=== PATIENT | female | born 1990 | race Caucasian/White ===

== ENCOUNTER 2018-12-10 14:22 | Emergency (ER) | payer SELFPAY ==
[2018-12-10] MEDS ORDERED: HYDROCODONE/APAP 7.5/325 MG TAB ONE (15:40)
--- NOTE | 2018-12-10 15:50 | RAD REPORT ---
EXAM DESCRIPTION: RAD - Hand Left 3 View - 12/10/2018 3:28 pm CLINICAL HISTORY: Left hand pain and swelling, trauma COMPARISON: None. FINDINGS: No fracture, dislocation or periosteal reaction noted. No acute bone process seen. No fore ign body is identified. There is soft tissue swelling over the dorsum of the hand. IMPRESSION: Soft tissue swelling without fracture or acute bone finding.
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
--- NOTE | 2018-12-10 15:56 | EDPHYS ---
Physician Documentation [facility] Name: Yue Foy Age: 28 yrs Sex: Female : 1990 Arrival Date: 12/10/2018 Time: 14:26 Bed 13 Private MD: ED Physician Joseph Spencer HPI: 12/10 14:51 This 28 yrs old Female presents to ER via Ambulatory with complaints of Hand kb Injury. 14:51 The patient or guardian reports a contusion, decreased range of motion, injury, pain, kb swelling, tenderness. The complaints affect the lateral aspect of left hand. Context: The problem was sustained at home, resulted from a fall. Onset: The symptoms/episode began/occurred just prior to arrival. Modifying factors: The symptoms are alleviated by nothing, the symptoms are aggravated by movement. Associated signs and symptoms: The patient has no apparent associated signs or symptoms. Severity of symptoms: At their worst the symptoms were moderate, in the emergency department the symptoms are unchanged. The patient has not experienced similar symptoms in the past. The patient has not recently seen a physician. 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 - Social history:: Smoking status: Patient uses tobacco products, smokes one-half pack cigarettes per day. - Ebola Screening: : Patient negative for fever greater than or equal to 101.5 degrees Fahrenheit, and additional compatible Ebola Virus Disease symptoms Patient denies exposure to infectious person Patient denies travel to an Ebola-affected area in the 21 days before illness onset No symptoms or risks identified at this time. ROS: 14:50 Constitutional: Negative for fever, chills, and weight loss, Cardiovascular: Negative kb for chest pain, palpitations, and edema, Respiratory: Negative for shortness of breath, cough, wheezing, and pleuritic chest pain, Abdomen/GI: Negative for abdominal pain, nausea, vomiting, diarrhea, and constipation, Skin: Negative for injury, rash, and discoloration, Neuro: Negative for headache, weakness, numbness, tingling, and seizure. 14:50 MS/extremity: Positive for injury or acute deformity, contusion, decreased range of motion, ecchymosis, pain, swelling, tenderness, of the lateral aspect of left hand. Exam: 14:50 Constitutional: This is a well developed, well nourished patient who is awake, alert, kb and in no acute distress. Head/Face: Normocephalic, atraumatic. Chest/axilla: Normal chest wall appearance and motion. Nontender with no deformity. No lesions are appreciated. Cardiovascular: Regular rate and rhythm with a normal S1 and S2. No gallops, murmurs, or rubs. Normal PMI, no JVD. No pulse deficits. Respiratory: Lungs have equal breath sounds bilaterally, clear to auscultation and percussion. No rales, rhonchi or wheezes noted. No increased work of breathing, no retractions or nasal flaring. Abdomen/GI: Soft, non-tender, with normal bowel sounds. No distension or tympany. No guarding or rebound. No evidence of tenderness throughout. Skin: Warm, dry with normal turgor. Normal color with no rashes, no lesions, and no evidence of cellulitis. Neuro: Awake and alert, GCS 15, oriented to person, place, time, and situation. Cranial nerves II-XII grossly intact. Motor strength 5/5 in all extremities. Sensory grossly intact. Cerebellar exam normal. Normal gait. 14:50 Musculoskeletal/extremity: Extremities: grossly normal except: noted in the lateral aspect of left hand: contusion, decreased ROM, ecchymosis, pain, swelling, tenderness, ROM: limited active range of motion, in the left thumb, Circulation is intact in all extremities. Sensation intact. Vital Signs: 14:35 Resp 17; Weight 54.43 kg; Height 5 ft. 1 in. (154.94 cm); Pain 10/10; sg 14:35 BP 132 / 70; Pulse 77; Pulse Ox 99% on R/A; sg 14:35 Body Mass Index 22.67 (54.43 kg, 154.94 cm) sg MDM: 14:45 Patient medically screened. kb 14:51 Data reviewed: vital signs, nurses notes. Data interpreted: Pulse oximetry: on room air kb is 99 %. Interpretation: normal. 15:52 Counseling: I had a detailed discussion with the patient and/or guardian regarding: the kb historical points, exam findings, and any diagnostic results supporting the discharge/admit diagnosis, radiology results, the need for outpatient follow up, a orthopedic surgeon, to return to the emergency department if symptoms worsen or persist or if there are any questions or concerns that arise at home. 12/10 14:48 Order name: Hand Left 3 View XRAY; Complete Time: 15:52 kb 12/10 15:55 Order name: Thumb Spica Splint; Complete Time: 19:36 kb Administered Medications: 15:35 Drug: [place] (7.5 mg-325 mg) 1 tabs Route: PO; rb1 16:00 Follow up: Response: No adverse reaction; Pain is decreased rb1 Disposition: 12/11 07:02 Co-signature as Attending Physician, Joseph Spencer MD. rn Disposition: 12/10/18 15:55 Discharged to Home. Impression: Contusion of left hand, Other sprain of left thumb. - Condition is Stable. - Discharge Instructions: Thumb Sprain, Hand Contusion, [id number]. - Medication Reconciliation Form, Thank You Letter, Antibiotic Education, Prescription Opioid Use form. - Follow up: Emergency Department; When: As needed; Reason: Worsening of condition. Follow up: Private Physician; When: 2 - 3 days; Reason: Recheck today's complaints, Continuance of care, Re-evaluation by your physician. Signatures: Dispatcher [employer] EDTX Ashley Beckham, LARON-C TANK BUILDER AND ERECTOR-Francisco Javier Le RN RN sg Nieto, Roman, MD MD rn Barber, Rebecca, RN RN rb1 Corrections: (The following items were deleted from the chart) 12/10 16:39 15:55 12/10/2018 15:55 Discharged to Home. Impression: Contusion of left hand; Other rb1 sprain of left thumb. Condition is Stable. Forms are Medication Reconciliation Form, Thank You Letter, Antibiotic Education, Prescription Opioid Use. Follow up: Emergency Department; When: As needed; Reason: Worsening of condition. Follow up: Private Physician; When: 2 - 3 days; Reason: Recheck today's complaints, Continuance of care, Re-evaluation by your physician. kb
== END 2018-12-10 16:39 | disposition home or self-care (01) ==
LOC: ER 14:22
DX: S60.222A Contusion of left hand, initial encounter (principal); S63.682A Other sprain of left thumb, initial encounter; W19.XXXA Unspecified fall, initial encounter; Y93.9 Activity, unspecified; Y92.009 Unspecified place in unspecified non-institutional (private) residence as the place of occurrence of the external cause; Z88.2 Allergy status to sulfonamides; F17.210 Nicotine dependence, cigarettes, uncomplicated
CPT/HCPCS: 99283

== ENCOUNTER 2018-12-25 13:33 | Emergency (ER) | payer SELFPAY ==
[2018-12-25] MEDS ORDERED: ONDANSETRON 4 MG (ODT) TAB ONE (13:59)
[2018-12-25 16:07] LABS: Absolute Lymphocytes (CBC) 1.3 K/uL (0.7-4.9); Absolute Monocytes 0.5 K/uL (0.1-1.3); Absolute Neutrophil 6.4 K/uL (1.8-8.0); Basophils % 0.7 % (0-1.3); Eosinophils % 1.5 % (0-4.4); Hematocrit 37.5 % (36.0-45.0); Lymphocytes % 15.6 % (15.3-44.8); MPV 9.2 fL (7.6-11.3); Monocytes % 6.4 % (3.3-12.3); RBC Red Blood Cell Count 4.18 M/uL (3.86-4.86)
[2018-12-25] MEDS ORDERED: NA CHLORIDE 0.9% 1,000 ML ONE (16:09)
[2018-12-25 16:30] LABS: BUN Blood Urea Nitrogen 10 mg/dL (7-18); Bicarbonate 29 mmol/L (21-32); Glucose Level 75 mg/dL (74-106); Potassium 4.1 mmol/L (3.5-5.1); Sodium Level 142 mmol/L (136-145)
[2018-12-25] MEDS ORDERED: KETOROLAC 30 MG/ML INJ ONE (16:36)
--- NOTE | 2018-12-25 16:37 | ER ---
Nurse's Notes [facility] Name: Yue Foy Age: 28 yrs Sex: Female : 1990 Arrival Date: 12/25/2018 Time: 13:35 Bed 23 Private MD: Diagnosis: Acute upper respiratory infection, unspecified Presentation: 12/25 13:42 Presenting complaint: Body aches, nonproductive cough, headache, sore throat, malaise, hb and N/V x 3 days. Not tolerating liquids. Transition of care: patient was not received from another setting of care. Onset of symptoms was December 22, 2018. Risk Assessment: Do you want to hurt yourself or someone else? Patient reports no desire to harm self or others. Care prior to arrival: None. 13:42 Method Of Arrival: Ambulatory hb 13:42 Acuity: TARA 3 hb Historical: - Allergies: 13:44 Sulfa (Sulfonamide Antibiotics); hb - PMHx: 13:44 Diverticulitis; Endometrosis; hb - PSHx: 13:44 Appendectomy; Kidney stents; hb - Immunization history:: Adult Immunizations up to date. - Social history:: Smoking status: Patient/guardian denies using tobacco. - Ebola Screening: : No symptoms or risks identified at this time. Screenin:57 Abuse screen: Denies threats or abuse. Nutritional screening: No deficits noted. la1 Tuberculosis screening: No symptoms or risk factors identified. Fall Risk None identified. Assessment: 15:56 General: Appears in no apparent distress. Behavior is calm, cooperative. Pain: la1 Complains of pain in throat and body aches. Neuro: Level of Consciousness is awake, alert, obeys commands, Oriented to person, place, time, situation. Cardiovascular: Heart tones S1 S2 present. Respiratory: Airway is patent Respiratory effort is Respiratory pattern is regular, symmetrical, Breath sounds are clear bilaterally. EENT: Oral mucosa is moist. Throat is clear is pink. 16:27 Reassessment: Patient appears in no apparent distress at this time. No changes from la1 previously documented assessment. Patient and/or family updated on plan of care and expected duration. Pain level reassessed. Vital Signs: 13:43 BP 132 / 93; Pulse 85; Resp 16; Temp 99.8; Pulse Ox 98% on R/A; Pain 8/10; hb 16:27 BP 118 / 72; Pulse 84; Resp 16; la1 ED Course: 13:35 Patient arrived in ED. as 13:42 Ashley Beckham FNP-C is [facility]. kb 13:42 Joseph Spencer MD is Attending Physician. kb 13:43 Triage completed. hb 13:44 Arm band placed on right wrist. hb 13:49 Strep Sent. hb 13:49 Flu Sent. hb 14:57 Sandeep Lind, RN is Primary Nurse. la1 15:57 Call light in reach. Side rails up X 1. la1 15:58 Missed attempt(s): 20 gauge in left antecubital area. lt1 15:58 Inserted saline lock: 22 gauge in left hand, using aseptic technique. lt1 15:58 Initial lab(s) drawn, by me, sent to lab. lt1 16:56 No provider procedures requiring assistance completed. IV discontinued, intact, la1 bleeding controlled, No redness/swelling at site. Pressure dressing applied. Administered Medications: 13:48 Drug: Zofran 4 mg Route: PO; hb 16:27 Follow up: Response: No adverse reaction la1 16:27 Drug: NS 0.9% 1000 ml Route: IV; Rate: 1000 ml; Site: left hand; la1 16:57 Follow up: IV Status: Completed infusion la1 16:27 Drug: TORadol 30 mg Route: IVP; Site: left hand; la1 16:57 Follow up: Response: No adverse reaction; Pain is decreased la1 Outcome: 16:36 Discharge ordered by MD. kb 16:56 Discharged to home ambulatory. la1 16:56 Condition: stable 16:56 Discharge instructions given to patient, Instructed on discharge instructions, follow up and referral plans. medication usage, Demonstrated understanding of instructions, follow-up care, medications, Prescriptions given X 1. 16:57 Patient left the ED. la1 Signatures: Ashley Beckham FNP-C FNP-Paula Salgado as Sandeep Lind RN RN la1 Aracely Gan RN RN hb Tran, Leah lt1
--- NOTE | 2018-12-25 16:37 | EDPHYS ---
Physician Documentation [facility] Name: Yue Foy Age: 28 yrs Sex: Female : 1990 Arrival Date: 12/25/2018 Time: 13:35 Bed 23 Private MD: ED Physician Joseph Spencer HPI: 12/25 16:35 This 28 yrs old Female presents to ER via Ambulatory with complaints of Flu kb Symptoms. 16:35 The patient or guardian reports cough, that is intermittent, described as moderate, kb with no sputum, flu symptoms, arthralgias, low-grade fever, myalgias, no appetite. Onset: The symptoms/episode began/occurred yesterday. Severity of symptoms: At their worst the symptoms were moderate, in the emergency department the symptoms are unchanged. Modifying factors: The symptoms are alleviated by nothing, the symptoms are aggravated by nothing. Associated signs and symptoms: Pertinent positives: fever, rhinorrhea, sore throat, Pertinent negatives: chest pain, diarrhea, ear ache, nausea, vomiting. The patient has not experienced similar symptoms in the past. The patient has not recently seen a physician. Historical: - Allergies: 13:44 Sulfa (Sulfonamide Antibiotics); hb - PMHx: 13:44 Diverticulitis; Endometrosis; hb - PSHx: 13:44 Appendectomy; Kidney stents; hb - Immunization history:: Adult Immunizations up to date. - Social history:: Smoking status: Patient/guardian denies using tobacco. - Ebola Screening: : No symptoms or risks identified at this time. ROS: 16:34 Neck: Negative for injury, pain, and swelling, Cardiovascular: Negative for chest pain, kb palpitations, and edema, Abdomen/GI: Negative for abdominal pain, nausea, vomiting, diarrhea, and constipation, Back: Negative for injury and pain, : Negative for injury, bleeding, discharge, and swelling, MS/Extremity: Negative for injury and deformity, Skin: Negative for injury, rash, and discoloration, Neuro: Negative for headache, weakness, numbness, tingling, and seizure. 16:34 Constitutional: Positive for body aches, chills, fatigue, fever, malaise, Negative for poor PO intake, weight loss. 16:34 ENT: Positive for sore throat. 16:34 Respiratory: Positive for cough, Negative for dyspnea on exertion, hemoptysis, orthopnea, pleurisy, shortness of breath, sputum production, wheezing. Exam: 16:34 Constitutional: This is a well developed, well nourished patient who is awake, alert, kb and in no acute distress. Head/Face: Normocephalic, atraumatic. ENT: Nares patent. No nasal discharge, no septal abnormalities noted. Tympanic membranes are normal and external auditory canals are clear. Oropharynx with no redness, swelling, or masses, exudates, or evidence of obstruction, uvula midline. Mucous membranes moist. Neck: Trachea midline, no thyromegaly or masses palpated, and no cervical lymphadenopathy. Supple, full range of motion without nuchal rigidity, or vertebral point tenderness. No Meningismus. Chest/axilla: Normal chest wall appearance and motion. Nontender with no deformity. No lesions are appreciated. Cardiovascular: Regular rate and rhythm with a normal S1 and S2. No gallops, murmurs, or rubs. Normal PMI, no JVD. No pulse deficits. Respiratory: Lungs have equal breath sounds bilaterally, clear to auscultation and percussion. No rales, rhonchi or wheezes noted. No increased work of breathing, no retractions or nasal flaring. Abdomen/GI: Soft, non-tender, with normal bowel sounds. No distension or tympany. No guarding or rebound. No evidence of tenderness throughout. Skin: Warm, dry with normal turgor. Normal color with no rashes, no lesions, and no evidence of cellulitis. MS/ Extremity: Pulses equal, no cyanosis. Neurovascular intact. Full, normal range of motion. Neuro: Awake and alert, GCS 15, oriented to person, place, time, and situation. Cranial nerves II-XII grossly intact. Motor strength 5/5 in all extremities. Sensory grossly intact. Cerebellar exam normal. Normal gait. Vital Signs: 13:43 BP 132 / 93; Pulse 85; Resp 16; Temp 99.8; Pulse Ox 98% on R/A; Pain 8/10; hb 16:27 BP 118 / 72; Pulse 84; Resp 16; la1 MDM: 14:56 Patient medically screened. kb 16:35 Data reviewed: vital signs, nurses notes. Data interpreted: Pulse oximetry: on room air kb is 98 %. Interpretation: normal. 16:36 Counseling: I had a detailed discussion with the patient and/or guardian regarding: the kb historical points, exam findings, and any diagnostic results supporting the discharge/admit diagnosis, lab results, the need for outpatient follow up, a family practitioner, to return to the emergency department if symptoms worsen or persist or if there are any questions or concerns that arise at home. 12/25 13:42 Order name: Flu; Complete Time: 14:23 hb 12/25 13:42 Order name: Strep; Complete Time: 14:23 hb 12/25 14:19 Order name: Throat Culture EDMS 12/25 15:13 Order name: CBC with Diff; Complete Time: 16:18 kb 12/25 15:13 Order name: Basic Metabolic Panel; Complete Time: 16:33 kb 12/25 15:13 Order name: Knott Screen Profile; Complete Time: 16:24 kb 12/25 15:55 Order name: Urine Dipstick-Ancillary (obtain specimen); Complete Time: 16:23 kb 12/25 16:18 Order name: Urine Dipstick--Ancillary (enter results); Complete Time: 16:53 em1 12/25 16:18 Order name: Urine --Ancillary (enter results); Complete Time: 16:53 em1 Administered Medications: 13:48 Drug: Zofran 4 mg Route: PO; hb 16:27 Follow up: Response: No adverse reaction la1 16:27 Drug: NS 0.9% 1000 ml Route: IV; Rate: 1000 ml; Site: left hand; la1 16:57 Follow up: IV Status: Completed infusion la1 16:27 Drug: TORadol 30 mg Route: IVP; Site: left hand; la1 16:57 Follow up: Response: No adverse reaction; Pain is decreased la1 Disposition: 18:36 Co-signature as Attending Physician, Joseph Spencer MD. rn Disposition: 12/25/18 16:36 Discharged to Home. Impression: Acute upper respiratory infection, unspecified. - Condition is Stable. - Discharge Instructions: Upper Respiratory Infection, Adult, [id number]. - Prescriptions for Tamiflu 75 mg Oral Capsule - take 1 capsule by ORAL route every 12 hours for 5 days; 10 capsule. - Medication Reconciliation Form, Thank You Letter, Antibiotic Education, Prescription Opioid Use form. - Follow up: Private Physician; When: 2 - 3 days; Reason: Recheck today's complaints, Continuance of care, Re-evaluation by your physician. Follow up: Emergency Department; When: As needed; Reason: Worsening of condition. Signatures: Dispatcher [employer] EDAshley Fraser, DERICK LARRY-Joseph Villeda MD MD rn Attema, Lee, RN RN la1 Aracely Gan RN RN Corrections: (The following items were deleted from the chart) 16:57 16:36 12/25/2018 16:36 Discharged to Home. Impression: Acute upper respiratory la1 infection, unspecified. Condition is Stable. Forms are Medication Reconciliation Form, Thank You Letter, Antibiotic Education, Prescription Opioid Use. Follow up: Private Physician; When: 2 - 3 days; Reason: Recheck today's complaints, Continuance of care, Re-evaluation by your physician. Follow up: Emergency Department; When: As needed; Reason: Worsening of condition. kb
[2018-12-25 16:52] LABS: Urine Blood NEGATIVE (NEG); Urine Glucose NEGATIVE (NEG); Urine Protein NEGATIVE (NEG); Urine Specific Gravity >1.030 (1.005-1.030)
== END 2018-12-25 16:57 | disposition home or self-care (01) ==
LOC: ER 13:33
DX: J06.9 Acute upper respiratory infection, unspecified (principal)
CPT/HCPCS: 36415; 80048; 81003; 81025; 85025; 86308; 87070; 87081; 87804; 96374; 99284; J7030

== ENCOUNTER 2018-12-31 16:38 | Emergency (ER) | payer SELFPAY ==
[2018-12-31] MEDS ORDERED: KETOROLAC 30 MG/ML INJ ONE (17:24)
[2018-12-31] MEDS ORDERED: LORazepam 2 MG/ML VIAL ONE (17:24)
[2018-12-31 17:29] LABS: Absolute Lymphocytes (CBC) 2.1 K/uL (0.7-4.9); Absolute Monocytes 0.7 K/uL (0.1-1.3); Absolute Neutrophil 6.7 K/uL (1.8-8.0); Basophils % 0.8 % (0-1.3); Hematocrit 36.9 % (36.0-45.0); MPV 8.8 fL (7.6-11.3); Monocytes % 6.8 % (3.3-12.3); RBC Red Blood Cell Count 4.21 M/uL (3.86-4.86)
[2018-12-31 17:48] LABS: ALT/SGPT 19 U/L (12-78); AST/SGOT 16 U/L (15-37); Albumin 3.9 g/dL (3.4-5.0); Alkaline Phosphatase 75 U/L (45-117); BUN Blood Urea Nitrogen 15 mg/dL (7-18); Bicarbonate 26 mmol/L (21-32); Bilirubin Direct < 0.1 mg/dL (0-0.2); Bilirubin Total 0.2 mg/dL (0.2-1.0); Glucose Level 83 mg/dL (74-106); Potassium 3.8 mmol/L (3.5-5.1); Protein, Total 7.4 g/dL (6.4-8.2); Sodium Level 144 mmol/L (136-145)
--- NOTE | 2018-12-31 18:34 | ER ---
Nurse's Notes [facility] Name: Yue Foy Age: 28 yrs Sex: Female : 1990 Arrival Date: 12/31/2018 Time: 16:39 Bed 4 Private MD: Diagnosis: Non Epileptic Seizures Presentation: 12/31 16:59 Presenting complaint: EMS states: SEIZURE LIKE ACTIVITY. Transition of care: patient bp was not received from another setting of care. Onset of symptoms is unknown. Risk Assessment: Do you want to hurt yourself or someone else? Patient reports no desire to harm self or others. Initial Sepsis Screen: Does the patient meet any 2 criteria? No. Patient's initial sepsis screen is negative. Does the patient have a suspected source of infection? No. Patient's initial sepsis screen is negative. Care prior to arrival: Medication(s) given: 2MG ATIVAN, 5MG VERSED IV initiated. 20 GA, in the right hand, Glucose check: 85. 16:59 Method Of Arrival: EMS: [facility] bp 16:59 Acuity: TARA 3 bp Triage Assessment: 17:04 General: Appears in no apparent distress. comfortable, Behavior is calm. Pain: Denies bp pain. EENT: No deficits noted. Neuro: Level of Consciousness is awake, alert, Oriented to person, place, time, situation, Appropriate for age Seizure activity Type of seizure: PT MAINTAINING VOLUNTARY REFLEXES DURING "SEIZURE" AND HAS NO POST-ICTAL PERIOD. Cardiovascular: No deficits noted. Respiratory: Airway is patent Respiratory effort is even, unlabored, Respiratory pattern is regular, symmetrical. GI: No signs and/or symptoms were reported involving the gastrointestinal system. : No signs and/or symptoms were reported regarding the genitourinary system. Derm: No deficits noted. Musculoskeletal: No deficits noted. 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 - Social history:: Smoking status: unknown. - Ebola Screening: : Patient negative for fever greater than or equal to 101.5 degrees Fahrenheit, and additional compatible Ebola Virus Disease symptoms Patient denies exposure to infectious person Patient denies travel to an Ebola-affected area in the 21 days before illness onset No symptoms or risks identified at this time. Screenin:07 Abuse screen: Denies threats or abuse. Denies injuries from another. Nutritional bp screening: No deficits noted. Tuberculosis screening: No symptoms or risk factors identified. Fall Risk No fall in past 12 months (0 pts). Secondary diagnosis (15 points) seizures, IV access (20 points). Ambulatory Aid- None/Bed Rest/Nurse Assist (0 pts). Gait- Normal/Bed Rest/Wheelchair (0 pts) Mental Status- Oriented to own ability (0 pts). Total Morales Fall Scale indicates Low Risk Score (25-44 pts). Fall prevention measures have been instituted. Side Rails Up X 2 Placed close to Nursing Station Frequent Obs/Assesments occuring As available Patient and Family Educated on Fall Prevention Program and strategies. Assessment: 16:40 Reassessment: seizure like activity noted, pt shaking, jerking, lasted approx 20 iw seconds, O2 sat remains 99%, no loss on continence, pt answers appropriately to questions after seizure like activity, pt states she just moved to the area and has been under a lot os stress. 16:47 Reassessment: pt shaking and jerking, lasted approx 20 seconds, pt able to lay to her iw back and answer questions post seizure, O2 sat remained 99%. 17:00 Reassessment: PT SEEN BY MD DURING SEIZURE LIKE ACTIVITY, CONFIRMED TO MD THAT SHE HAD bp "NON-EPILEPTIC PSEUDO SEIZURES.". 18:28 Reassessment: ALL CURRENT ORDERS COMPLETED. PROVIDER AT B/S FOR DISPO. bp 18:48 Reassessment: PT D/ C HOME AMBULATORY WITH FAMILY, DX WITH NON EPILEPTIC SEIZURES. bp Vital Signs: 17:04 BP 133 / 88; Pulse 88; Resp 21; Temp 98; Pulse Ox 98% ; Weight 56.7 kg; bp 17:30 BP 124 / 87; Pulse 82; Resp 18; Pulse Ox 97% on R/A; bp 18:27 BP 114 / 63; Pulse 88; Resp 14; Pulse Ox 100% ; bp Gregg Coma Score: 17:04 Eye Response: spontaneous(4). Verbal Response: oriented(5). Motor Response: obeys bp commands(6). Total: 15. ED Course: 16:39 Patient arrived in ED. bp 16:48 Maintain EMS IV. Dressing intact. Good blood return noted. Site clean \\T\\ dry. Gauge \\T\\ iw site: 20 right hand. 16:53 Sanchez Stanford PA is PHCP. jr8 16:53 Magno Mares MD is Attending Physician. jr8 16:58 Matt Anne, RN is Primary Nurse. bp 17:01 Triage completed. bp 17:04 Arm band placed on. bp 17:05 Seizure precautions initiated. bp 17:07 No provider procedures requiring assistance completed. bp 17:07 Patient has correct armband on for positive identification. Placed in gown. Bed in low bp position. Call light in reach. Side rails up X2. 17:57 EKG done, by ED staff, reviewed by Sanchez MADDEN. [facility] 18:47 IV discontinued, intact, bleeding controlled, No redness/swelling at site. Pressure bp dressing applied. Administered Medications: 17:05 Drug: TORadol 30 mg Route: IVP; Site: right hand; bp 17:38 Follow up: Response: Pain is decreased bp 17:05 Drug: Ativan 0.5 mg Route: IVP; Site: right hand; bp 17:38 Follow up: Response: Anxiety decreased bp 18:47 Drug: [place] (7.5 mg-325 mg) 1 tabs Route: PO; bp 18:47 Follow up: Response: Medication administered at discharge. bp Outcome: 18:33 Discharge ordered by . jr 18:48 Discharged to home ambulatory, with family. bp 18:48 Condition: stable 18:48 Discharge instructions given to patient, family, Instructed on discharge instructions, follow up and referral plans. Demonstrated understanding of instructions, follow-up care. 18:49 Patient left the ED. bp Signatures: Marisol Alvarado RN RN Sanchez Stanford PA PA [facility] Sarah Koch [facility] Matt Anne, GRABIEL RN bp
--- NOTE | 2018-12-31 18:34 | EDPHYS ---
Physician Documentation [facility] Name: Yue Foy Age: 28 yrs Sex: Female : 1990 Arrival Date: 12/31/2018 Time: 16:39 Bed 4 Private MD: ED Physician Magno Mares HPI: 12/31 17:20 This 28 yrs old Female presents to ER via EMS with complaints of Seizure. jr8 17:20 The patient presents with a history of multiple seizures. Character of seizure(s): Loss jr8 of consciousness: the patient experienced loss of consciousness, Motor activity: generalized, Incontinence: none, Apnea: the patient did not experience apnea, Circulation: the patient did not experience evidence of pulse disturbance, Eye movements: are unknown. Seizure onset: just prior to arrival, today. Context: the seizure(s) was witnessed, by EMS personnel, by family, occurred at home. Seizure Hx: History of non epileptic seizures. Associated injury: The patient did not suffer any apparent associated injury. Current symptoms: headache, that is mild. The patient has experienced similar episodes in the past, a few times. The patient has not recently seen a physician. 17:20 Had been more stressed this afternoon. Usually her seizures are stress induced . 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 - Social history:: Smoking status: unknown. - Ebola Screening: : Patient negative for fever greater than or equal to 101.5 degrees Fahrenheit, and additional compatible Ebola Virus Disease symptoms Patient denies exposure to infectious person Patient denies travel to an Ebola-affected area in the 21 days before illness onset No symptoms or risks identified at this time. ROS: 17:20 Eyes: Negative for injury, pain, redness, and discharge, ENT: Negative for injury, jr8 pain, and discharge, Neck: Negative for injury, pain, and swelling, Cardiovascular: Negative for chest pain, palpitations, and edema, Respiratory: Negative for shortness of breath, cough, wheezing, and pleuritic chest pain, Abdomen/GI: Negative for abdominal pain, nausea, vomiting, diarrhea, and constipation, Back: Negative for injury and pain, MS/Extremity: Negative for injury and deformity, Skin: Negative for injury, rash, and discoloration. 17:20 Neuro: Positive for loss of consciousness, seizure activity. Exam: 17:20 Eyes: Pupils equal round and reactive to light, extra-ocular motions intact. Lids and jr8 lashes normal. Conjunctiva and sclera are non-icteric and not injected. Cornea within normal limits. Periorbital areas with no swelling, redness, or edema. ENT: Nares patent. No nasal discharge, no septal abnormalities noted. Tympanic membranes are normal and external auditory canals are clear. Oropharynx with no redness, swelling, or masses, exudates, or evidence of obstruction, uvula midline. Mucous membranes moist. Neck: Trachea midline, no thyromegaly or masses palpated, and no cervical lymphadenopathy. Supple, full range of motion without nuchal rigidity, or vertebral point tenderness. No Meningismus. Cardiovascular: Regular rate and rhythm with a normal S1 and S2. No gallops, murmurs, or rubs. Normal PMI, no JVD. No pulse deficits. Respiratory: Lungs have equal breath sounds bilaterally, clear to auscultation and percussion. No rales, rhonchi or wheezes noted. No increased work of breathing, no retractions or nasal flaring. Abdomen/GI: Soft, non-tender, with normal bowel sounds. No distension or tympany. No guarding or rebound. No evidence of tenderness throughout. Back: No spinal tenderness. No costovertebral tenderness. Full range of motion. Skin: Warm, dry with normal turgor. Normal color with no rashes, no lesions, and no evidence of cellulitis. MS/ Extremity: Pulses equal, no cyanosis. Neurovascular intact. Full, normal range of motion. Neuro: Awake and alert, GCS 15, oriented to person, place, time, and situation. Cranial nerves II-XII grossly intact. Motor strength 5/5 in all extremities. Sensory grossly intact. Cerebellar exam normal. Normal gait. Vital Signs: 17:04 BP 133 / 88; Pulse 88; Resp 21; Temp 98; Pulse Ox 98% ; Weight 56.7 kg; bp 17:30 BP 124 / 87; Pulse 82; Resp 18; Pulse Ox 97% on R/A; bp 18:27 BP 114 / 63; Pulse 88; Resp 14; Pulse Ox 100% ; bp [place] Coma Score: 17:04 Eye Response: spontaneous(4). Verbal Response: oriented(5). Motor Response: obeys bp commands(6). Total: 15. MDM: 16:53 Patient medically screened. jr8 18:31 Data reviewed: vital signs, nurses notes, lab test result(s), EKG. Data interpreted: jr8 Pulse oximetry: on room air is 100 %. Interpretation: normal. Counseling: I had a detailed discussion with the patient and/or guardian regarding: the historical points, exam findings, and any diagnostic results supporting the discharge/admit diagnosis, lab results, the need for outpatient follow up, a family practitioner, a neurologist, to return to the emergency department if symptoms worsen or persist or if there are any questions or concerns that arise at home. 12/31 16:54 Order name: Basic Metabolic Panel; Complete Time: 18:15 12/31 16:54 Order name: CBC with Diff; Complete Time: 17:42 12/31 16:54 Order name: ETOH Level; Complete Time: 18:15 12/31 16:54 Order name: Hepatic Function; Complete Time: 18:15 12/31 16:54 Order name: EKG; Complete Time: 16:54 12/31 16:54 Order name: IV Saline Lock; Complete Time: 16:59 12/31 16:54 Order name: Labs collected and sent; Complete Time: 17:38 Administered Medications: 17:05 Drug: TORadol 30 mg Route: IVP; Site: right hand; bp 17:38 Follow up: Response: Pain is decreased bp 17:05 Drug: Ativan 0.5 mg Route: IVP; Site: right hand; bp 17:38 Follow up: Response: Anxiety decreased bp 18:47 Drug: [place] (7.5 mg-325 mg) 1 tabs Route: PO; bp 18:47 Follow up: Response: Medication administered at discharge. bp Disposition: 01/01 17:48 Co-signature as Attending Physician, Magno Mares MD. gs Disposition: 12/31/18 18:33 Discharged to Home. Impression: Non Epileptic Seizures. - Condition is Stable. - Discharge Instructions: Nonepileptic Seizures. - Medication Reconciliation Form, Thank You Letter, Antibiotic Education, Prescription Opioid Use form. - Follow up: Private Physician; When: 2 - 3 days; Reason: Recheck today's complaints, Continuance of care, Re-evaluation by your physician. - Problem is new. - Symptoms have improved. Signatures: Dispatcher [employer] EDMS Sanchez Stanford PA PA jr8 Magno Mares MD MD gs Peltier, Brian, GRABIEL RN bp Corrections: (The following items were deleted from the chart) 12/31 18:49 18:33 12/31/2018 18:33 Discharged to Home. Impression: Non Epileptic Seizures. bp Condition is Stable. Forms are Medication Reconciliation Form, Thank You Letter, Antibiotic Education, Prescription Opioid Use. Follow up: Private Physician; When: 2 - 3 days; Reason: Recheck today's complaints, Continuance of care, Re-evaluation by your physician. Problem is new. Symptoms have improved. jr8
[2018-12-31] MEDS ORDERED: HYDROCODONE/APAP 7.5/325 MG TAB ONE (18:52)
--- NOTE | 2019-01-01 07:40 | EKG ---
Test Date: 2018-12-31 Test Time: 17:36:23 Spray Painter: JULIA MEASUREMENT RESULTS: Intervals: Rate: 82 MN: 164 QRSD: 78 QT: 386 QTc: 450 [place]: P: 52 MN: 164 QRS: 59 T: 39 INTERPRETIVE STATEMENTS: Normal sinus rhythm Possible Left atrial enlargement Borderline ECG No previous ECG available for comparison Electronically Signed On 01-01-19 07:39:19 RANGE SCIENTIST by Hakan Huerta
== END 2018-12-31 18:49 | disposition home or self-care (01) ==
LOC: ER 16:38
DX: R56.9 Unspecified convulsions (principal); Z88.2 Allergy status to sulfonamides
CPT/HCPCS: 36415; 80048; 80076; 80320; 85025; 93005; 96374; 99283

== ENCOUNTER 2019-02-05 18:16 | Emergency (ER) | payer SELFPAY ==
[2019-02-05] MEDS ORDERED: LORazepam 2 MG/ML VIAL ONE ×2 (18:48→19:10)
[2019-02-05 19:37] LABS: Absolute Lymphocytes (CBC) 2.2 K/uL (0.7-4.9); Absolute Monocytes 0.6 K/uL (0.1-1.3); Absolute Neutrophil 6.7 K/uL (1.8-8.0); Basophils % 0.7 % (0-1.3); Eosinophils % 2.7 % (0-4.4); Lymphocytes % 22.2 % (15.3-44.8); MPV 9.9 fL (7.6-11.3); Monocytes % 5.9 % (3.3-12.3); RBC Red Blood Cell Count 4.54 M/uL (3.86-4.86)
[2019-02-05] MEDS ORDERED: KETOROLAC 30 MG/ML INJ ONE ×2 (19:51→21:26)
[2019-02-05] MEDS ORDERED: NA CHLORIDE 0.9% 1,000 ML ONE (19:52)
[2019-02-05] MEDS ORDERED: ONDANSETRON 4 MG/2 ML VIAL ONE (19:52)
[2019-02-05 19:53] LABS: Protime INR 0.96
[2019-02-05 19:55] LABS: ALT/SGPT 34 U/L (12-78); AST/SGOT 23 U/L (15-37); Albumin 4.3 g/dL (3.4-5.0); Alkaline Phosphatase 61 U/L (45-117); BUN Blood Urea Nitrogen 20 mg/dL (7-18); Bicarbonate 28 mmol/L (21-32); Bilirubin Direct < 0.1 mg/dL (0-0.2); Bilirubin Total 0.3 mg/dL (0.2-1.0); Glucose Level 78 mg/dL (74-106); Potassium 3.8 mmol/L (3.5-5.1); Protein, Total 7.6 g/dL (6.4-8.2); Sodium Level 142 mmol/L (136-145)
[2019-02-05 20:18] LABS: Barbiturates NEGATIVE (NEGATIVE); Benzodiazepines POSITIVE (NEGATIVE); Cocaine NEGATIVE (NEGATIVE); METHAMPHETAM NEGATIVE (NEGATIVE); Methadone NEGATIVE (NEGATIVE); Opiates NEGATIVE (NEGATIVE); Phencyclidine NEGATIVE (NEGATIVE); THC Cannibis POSITIVE (NEGATIVE)
[2019-02-05 20:19] LABS: Urine Blood NEGATIVE (NEG); Urine Glucose NEGATIVE (NEG); Urine Protein NEGATIVE (NEG); Urine Specific Gravity 1.025 (1.005-1.030); Urine pH 5.5 (5.0-7.0)
--- NOTE | 2019-02-05 20:41 | EDPHYS ---
Physician Documentation [facility] Name: Yue Foy Age: 28 yrs Sex: Female : 1990 Arrival Date: 02/05/2019 Time: 18:17 Bed 6 Private MD: Rodney Barnes HPI: 02/05 18:39 This 28 yrs old Female presents to ER via Ambulatory with complaints of jr8 Seizure. 18:39 The patient presents with a history of multiple seizures, a total of 8, the episode(s) jr8 was witnessed, by family, medical staff . Character of seizure(s): Loss of consciousness: the patient experienced loss of consciousness, Motor activity: generalized, Incontinence: none, Apnea: the patient did not experience apnea, Circulation: the patient did not experience evidence of pulse disturbance, Eye movements: are unknown. Seizure onset: today. Context: occurred at home, occurred while the patient was at rest. Seizure Hx: Original onset: "not sure", Cause: unknown, Seizure medications: clonazepam, Lamictal. 20:36 The patient has experienced similar episodes in the past, several times. The patient jr8 has not recently seen a physician. of patient stated that she has missed a couple days of her medication. Has had multiple seizures today . Historical: - Allergies: 18:37 Sulfa (Sulfonamide Antibiotics); hj - Home Meds: 18:37 Klonopin Oral [Active]; lamotrigine Oral [Active]; Lexapro Oral [Active]; hj - PMHx: 18:37 Diverticulitis; Endometrosis; Seizures; - PSHx: 18:37 Appendectomy; - Immunization history:: Adult Immunizations up to date. - Social history:: Smoking status: Patient uses tobacco products, Patient uses alcohol. - Ebola Screening: : Patient negative for fever greater than or equal to 101.5 degrees Fahrenheit, and additional compatible Ebola Virus Disease symptoms Patient denies exposure to infectious person Patient denies travel to an Ebola-affected area in the 21 days before illness onset. ROS: 20:36 Eyes: Negative for injury, pain, redness, and discharge, ENT: Negative for injury, jr8 pain, and discharge, Neck: Negative for injury, pain, and swelling, Cardiovascular: Negative for chest pain, palpitations, and edema, Respiratory: Negative for shortness of breath, cough, wheezing, and pleuritic chest pain, Abdomen/GI: Negative for abdominal pain, nausea, vomiting, diarrhea, and constipation, Back: Negative for injury and pain, MS/Extremity: Negative for injury and deformity, Skin: Negative for injury, rash, and discoloration. 20:36 Neuro: Positive for seizure activity. Exam: 20:36 Eyes: Pupils equal round and reactive to light, extra-ocular motions intact. Lids and jr8 lashes normal. Conjunctiva and sclera are non-icteric and not injected. Cornea within normal limits. Periorbital areas with no swelling, redness, or edema. ENT: Nares patent. No nasal discharge, no septal abnormalities noted. Tympanic membranes are normal and external auditory canals are clear. Oropharynx with no redness, swelling, or masses, exudates, or evidence of obstruction, uvula midline. Mucous membranes moist. Neck: Trachea midline, no thyromegaly or masses palpated, and no cervical lymphadenopathy. Supple, full range of motion without nuchal rigidity, or vertebral point tenderness. No Meningismus. Cardiovascular: Regular rate and rhythm with a normal S1 and S2. No gallops, murmurs, or rubs. Normal PMI, no JVD. No pulse deficits. Respiratory: Lungs have equal breath sounds bilaterally, clear to auscultation and percussion. No rales, rhonchi or wheezes noted. No increased work of breathing, no retractions or nasal flaring. Abdomen/GI: Soft, non-tender, with normal bowel sounds. No distension or tympany. No guarding or rebound. No evidence of tenderness throughout. Back: No spinal tenderness. No costovertebral tenderness. Full range of motion. Skin: Warm, dry with normal turgor. Normal color with no rashes, no lesions, and no evidence of cellulitis. MS/ Extremity: Pulses equal, no cyanosis. Neurovascular intact. Full, normal range of motion. Neuro: Awake and alert, GCS 15, oriented to person, place, time, and situation. Cranial nerves II-XII grossly intact. Motor strength 5/5 in all extremities. Sensory grossly intact. Cerebellar exam normal. Normal gait. Vital Signs: 18:35 BP 122 / 84; Pulse 81; Resp 18; Temp 99.9(TE); Pulse Ox 100% ; Weight 58.97 kg; Height hj 5 ft. 4 in. (162.56 cm); 19:53 BP 120 / 58; Pulse 72; Resp 16; Temp 98.9; Pulse Ox 99% on R/A; ak1 20:56 BP 105 / 78; Pulse 77; Resp 16; Temp 98.9; Pulse Ox 99% on R/A; Pain 0/10; ak1 21:14 BP 108 / 75; Pulse 70; Resp 17; Pulse Ox 99% ; rr5 21:30 BP 101 / 88; Pulse 76; Resp 16; Pulse Ox 100% ; rr5 18:35 Body Mass Index 22.31 (58.97 kg, 162.56 cm) Gregg Coma Score: 18:37 Eye Response: spontaneous(4). Verbal Response: oriented(5). Motor Response: obeys hj commands(6). Total: 15. MDM: 18:25 Patient medically screened. jr8 20:36 Data reviewed: vital signs, nurses notes, lab test result(s), EKG. Data interpreted: jr8 Pulse oximetry: on room air is 99 %. Interpretation: normal. Counseling: I had a detailed discussion with the patient and/or guardian regarding: the historical points, exam findings, and any diagnostic results supporting the discharge/admit diagnosis, lab results, the need for outpatient follow up, a family practitioner, a neurologist, to return to the emergency department if symptoms worsen or persist or if there are any questions or concerns that arise at home. Response to treatment: the patient's symptoms have resolved after treatment. 02/05 18:34 Order name: Basic Metabolic Panel; Complete Time: 20:00 8 02/05 18:34 Order name: CBC with Diff; Complete Time: 19:50 jr8 02/05 18:34 Order name: ETOH Level; Complete Time: 20:00 jr8 02/05 18:34 Order name: Hepatic Function; Complete Time: 20:00 jr8 02/05 18:34 Order name: PT-INR; Complete Time: 20:00 jr8 02/05 18:34 Order name: Ptt, Activated; Complete Time: 20:00 jr8 02/05 18:34 Order name: Urine Drug Screen; Complete Time: 20:36 jr8 02/05 18:52 Order name: Glucose, Ancillary Testing; Complete Time: 18:59 EDMS 02/05 19:44 Order name: Urine Dipstick--Ancillary (enter results); Complete Time: 20:20 [facility] 02/05 19:44 Order name: Urine --Ancillary (enter results); Complete Time: 20:20 [facility] 02/05 19:47 Order name: Urine Culture; Complete Time: 09:28 [facility] 02/05 19:47 Order name: Urine Microscopic Only; Complete Time: 20:55 [facility] 02/05 18:34 Order name: Urine Test (obtain specimen); Complete Time: 19:52 [facility] 02/05 18:34 Order name: EKG; Complete Time: 18:35 [facility] 02/05 18:34 Order name: EKG - Nurse/Tech; Complete Time: 18:40 [facility] 02/05 18:34 Order name: IV Saline Lock; Complete Time: 18:40 [facility] 02/05 18:34 Order name: Labs collected and sent; Complete Time: 18:40 [facility] 02/05 18:34 Order name: Urine Dipstick-Ancillary (obtain specimen); Complete Time: 19:52 [facility] Administered Medications: 15:00 Drug: Ativan 2 mg Route: IVP; Site: right antecubital; hj 20:57 Follow up: Response: No adverse reaction ak1 18:45 Drug: Ativan 1 mg Route: IVP; Site: right antecubital; la1 20:57 Follow up: Response: No adverse reaction ak1 19:52 Drug: TORadol 30 mg Route: IVP; Site: right antecubital; ak1 20:57 Follow up: Response: No adverse reaction ak1 19:52 Drug: Zofran 4 mg Route: IVP; Site: right antecubital; ak1 20:57 Follow up: Response: No adverse reaction ak1 19:52 Drug: NS 0.9% 1000 ml Route: IV; Rate: 1000 ml; Site: right antecubital; ak1 20:57 Follow up: IV Status: Completed infusion; IV Intake: 1000ml ak1 21:15 Drug: TORadol 30 mg Route: IVP; Site: right antecubital; rr5 21:30 Follow up: Response: Medication administered at discharge.; patient does not want to rr5 wait, she wants to go now. ED provider aware. Disposition: 02/06 07:23 Co-signature as Attending Physician, Rodney Wilder MD I agree with the assessment and sarah plan of care. Disposition: 02/05/19 20:41 Discharged to Home. Impression: Seizures, Drug abuse counseling and surveillance. - Condition is Stable. - Discharge Instructions: Nonepileptic Seizures. - Medication Reconciliation Form, Thank You Letter, Antibiotic Education, Prescription Opioid Use form. - Follow up: Private Physician; When: 2 - 3 days; Reason: Recheck today's complaints, Continuance of care, Re-evaluation by your physician. - Problem is new. - Symptoms have improved. Signatures: Dispatcher [employer] EDMT Rodney Wilder MD MD cha Roszak, Josh, PA PA jr8 Sandeep Lind, RN RN la1 Gena Tapia RN RN ak1 Anibal Peres, RN RN hj Manfred Sood, DIE TRY OUT WORKER DIE TRY OUT WORKER pm1 Sean Mendiola, RN RN rr5 Corrections: (The following items were deleted from the chart) 02/05 21:43 20:41 02/05/2019 20:41 Discharged to Home. Impression: Seizures; Drug abuse counseling rr5 and surveillance. Condition is Stable. Forms are Medication Reconciliation Form, Thank You Letter, Antibiotic Education, Prescription Opioid Use. Follow up: Private Physician; When: 2 - 3 days; Reason: Recheck today's complaints, Continuance of care, Re-evaluation by your physician. Problem is new. Symptoms have improved. jr8
--- NOTE | 2019-02-05 20:41 | ER ---
Nurse's Notes [facility] Name: Yue Foy Age: 28 yrs Sex: Female : 1990 Arrival Date: 02/05/2019 Time: 18:17 Bed 6 Private MD: Diagnosis: Seizures;Drug abuse counseling and surveillance Presentation: 02/05 18:18 Presenting complaint: Patient states: i was at work and had a couple of seizures; i hj think i bit my tongue; last seizure, 5 mins SANDBLASTER GLASS; A\\T\\O x 4' in triage had a 30 second generalized seizure;. Transition of care: patient was not received from another setting of care. Onset of symptoms was February 05, 2019. Risk Assessment: Do you want to hurt yourself or someone else? Patient reports no desire to harm self or others. Initial Sepsis Screen: Does the patient meet any 2 criteria? No. Patient's initial sepsis screen is negative. 18:18 Method Of Arrival: Ambulatory 18:18 Acuity: TARA 3 18:38 Initial Sepsis Screen: Does the patient have a suspected source of infection? No. hj Patient's initial sepsis screen is negative. Care prior to arrival: None. Triage Assessment: 18:37 General: Appears in no apparent distress. uncomfortable, Behavior is calm, cooperative, hj appropriate for age. Pain: Denies pain. Neuro: Seizure activity noted at this time. Type of seizure: grand mal seizure. Seizure lasted approximately 1 minutes. Historical: - Allergies: 18:37 Sulfa (Sulfonamide Antibiotics); - Home Meds: 18:37 Klonopin Oral [Active]; lamotrigine Oral [Active]; Lexapro Oral [Active]; hj - PMHx: 18:37 Diverticulitis; Endometrosis; Seizures; - PSHx: 18:37 Appendectomy; hj - Immunization history:: Adult Immunizations up to date. - Social history:: Smoking status: Patient uses tobacco products, Patient uses alcohol. - Ebola Screening: : Patient negative for fever greater than or equal to 101.5 degrees Fahrenheit, and additional compatible Ebola Virus Disease symptoms Patient denies exposure to infectious person Patient denies travel to an Ebola-affected area in the 21 days before illness onset. Screenin:37 Abuse screen: Denies threats or abuse. Denies injuries from another. Nutritional hj screening: No deficits noted. Tuberculosis screening: No symptoms or risk factors identified. Fall Risk Fall in past 12 months (25 points). Secondary diagnosis (15 points) seizures, Assessment: 19:53 General: Appears in no apparent distress. Behavior is calm, cooperative. Pain: ak1 Complains of pain in all over boady pain. Neuro: Level of Consciousness is awake, alert, obeys commands, Oriented to person, place, time, situation, Lead Laying And Gluing Machine Operator are equal bilaterally Moves all extremities. Gait is steady, Speech is normal, Facial symmetry appears normal, Seizure activity reported prior to arrival. pt A\\T\\OX4 asking for water. pt informed of wait for lab results to decide if pt would stay, transfer out or go home. pt called stating pt seizing. pt not post ictal, pt body tense, pt with eye movement, pt pupils equal and reactive, pt continent. ERP notified no new orders given. pt to be monitored as of right now. pt stated she stopped her seizure medications at home for over a week now, "i thought maybe i didn't need them anymore". Cardiovascular: No deficits noted. Respiratory: No deficits noted. GI: No signs and/or symptoms were reported involving the gastrointestinal system. : No signs and/or symptoms were reported regarding the genitourinary system. EENT: No signs and/or symptoms were reported regarding the EENT system. Derm: No signs and/or symptoms reported regarding the dermatologic system. 20:56 Reassessment: Patient appears in no apparent distress at this time. No changes from ak1 previously documented assessment. Patient and/or family updated on plan of care and expected duration. Pain level reassessed. Patient is alert, oriented x 3, equal unlabored respirations, skin warm/dry/pink. Patient states symptoms have improved. 21:10 Reassessment: Patient appears in no apparent distress at this time. Patient is alert, rr5 oriented x 3, equal unlabored respirations, skin warm/dry/pink. complaints of body ache, ED provider aware with order made and carried out. 21:14 Reassessment: explained to patient to stay for couple of minutes after the rr5 administration of medication and agreed. 21:30 Reassessment: Patient appears in no apparent distress at this time. denies any , rr5 dizziness, patient requested to go home now. ED provider informed. discharge instruction given and explained without complaints made. Vital Signs: 18:35 BP 122 / 84; Pulse 81; Resp 18; Temp 99.9(TE); Pulse Ox 100% ; Weight 58.97 kg; Height hj 5 ft. 4 in. (162.56 cm); 19:53 BP 120 / 58; Pulse 72; Resp 16; Temp 98.9; Pulse Ox 99% on R/A; ak1 20:56 BP 105 / 78; Pulse 77; Resp 16; Temp 98.9; Pulse Ox 99% on R/A; Pain 0/10; ak1 21:14 BP 108 / 75; Pulse 70; Resp 17; Pulse Ox 99% ; rr5 21:30 BP 101 / 88; Pulse 76; Resp 16; Pulse Ox 100% ; rr5 18:35 Body Mass Index 22.31 (58.97 kg, 162.56 cm) hj Gregg Coma Score: 18:37 Eye Response: spontaneous(4). Verbal Response: oriented(5). Motor Response: obeys hj commands(6). Total: 15. ED Course: 18:17 Patient arrived in ED. as 18:21 Triage completed. hj 18:25 Sanchez Stanford PA is PHCP. jr8 18:25 Rodney Wilder MD is Attending Physician. jr8 18:38 Arm band placed on right wrist. hj 18:38 Patient has correct armband on for positive identification. Placed in gown. Bed in low hj position. Call light in reach. Adult w/ patient. Seizure precautions initiated. 18:46 Inserted saline lock: 22 gauge in right antecubital area, using aseptic technique. la1 Blood collected. 19:37 Gena Tapia, RN is Primary Nurse. ak1 21:30 No provider procedures requiring assistance completed. IV discontinued, intact, rr5 bleeding controlled, No redness/swelling at site. Pressure dressing applied. Administered Medications: 15:00 Drug: Ativan 2 mg Route: IVP; Site: right antecubital; hj 20:57 Follow up: Response: No adverse reaction ak1 18:45 Drug: Ativan 1 mg Route: IVP; Site: right antecubital; la1 20:57 Follow up: Response: No adverse reaction ak1 19:52 Drug: TORadol 30 mg Route: IVP; Site: right antecubital; ak1 20:57 Follow up: Response: No adverse reaction ak1 19:52 Drug: Zofran 4 mg Route: IVP; Site: right antecubital; ak1 20:57 Follow up: Response: No adverse reaction ak1 19:52 Drug: NS 0.9% 1000 ml Route: IV; Rate: 1000 ml; Site: right antecubital; ak1 20:57 Follow up: IV Status: Completed infusion; IV Intake: 1000ml ak1 21:15 Drug: TORadol 30 mg Route: IVP; Site: right antecubital; rr5 21:30 Follow up: Response: Medication administered at discharge.; patient does not want to rr5 wait, she wants to go now. ED provider aware. Intake: 20:57 IV: 1000ml; Total: 1000ml. ak1 Outcome: 20:41 Discharge ordered by MD. jr8 21:30 Discharged to home ambulatory, with family. rr5 21:30 Condition: stable 21:30 Discharge instructions given to patient, Instructed on discharge instructions, follow up and referral plans. Demonstrated understanding of instructions, follow-up care. 21:43 Patient left the ED. rr5 Addendum: 02/08/2019 10:10 Addendum: Culture Results: Positive urine culture. Bacteria is resistant to, has s s intermediate sensitivity, or is not tested against prescribed antibiotics. Report given to [facility] for further evaluation and then to [employer] for follow up with patient. Phone call Attempt #1 no answer. Signatures: Paula Koch Shelby, RN RN ss Roszak, Josh, PA PA jr8 Sandeep Lind RN RN maria c1 Gena Tapia RN RN ak1 Anibal Peres RN RN hj Roque, Raymond, RN RN rr5 Corrections: (The following items were deleted from the chart) 02/05 18:24 18:18 Presenting complaint: Patient states: i was at work and had a couple of seizures; hj i think i bit my tongue; last seizure, 5 mins SANDBLASTER GLASS; A\\T\\O x4; hj
[2019-02-05 20:51] LABS: Urine Bacteria >50 /HPF (<20); Urine Culture Reflex Order NOT NEEDED; Urine RBC <5 /HPF (NONE SEEN)
--- NOTE | 2019-02-06 08:48 | EKG ---
Test Date: 2019-02-05 Test Time: 18:36:37 Service Engine Repairer: MEASUREMENT RESULTS: Intervals: Rate: 91 VA: 156 QRSD: 82 QT: 356 QTc: 437 [place]: P: 61 VA: 156 QRS: 72 T: 55 INTERPRETIVE STATEMENTS: Normal sinus rhythm Normal ECG Compared to ECG 12/31/2018 17:36:23 No significant changes Electronically Signed On 02-06-19 08:47:43 CDT by Fabian Lynch
== END 2019-02-05 21:43 | disposition home or self-care (01) ==
LOC: ER 18:16
DX: R56.9 Unspecified convulsions (principal); Z71.51 Drug abuse counseling and surveillance of drug abuser; Z88.2 Allergy status to sulfonamides
CPT/HCPCS: 36415; 80048; 80076; 80307; 80320; 81003; 81015; 81025; 82962; 85025; 85610; 85730; 87077; 87086; 87088; 87186; 93005; 96361; 96374; 96375; 99284; J2405; J7030

== ENCOUNTER 2019-02-23 17:44 | Emergency (ER) | payer SELFPAY ==
[2019-02-23 18:49] LABS: Absolute Lymphocytes (CBC) 1.6 K/uL (0.7-4.9); Absolute Monocytes 0.9 K/uL (0.1-1.3); Absolute Neutrophil 6.3 K/uL (1.8-8.0); Basophils % 0.7 % (0-1.3); Eosinophils % 1.3 % (0-4.4); Hematocrit 36.4 % (36.0-45.0); Lymphocytes % 18.1 % (15.3-44.8); Monocytes % 10.5 % (3.3-12.3); RBC Red Blood Cell Count 4.06 M/uL (3.86-4.86)
[2019-02-23 19:05] LABS: Albumin 3.5 g/dL (3.4-5.0); Bilirubin Direct 0.1 mg/dL (0-0.2); Bilirubin Total 0.3 mg/dL (0.2-1.0); Potassium 3.6 mmol/L (3.5-5.1)
[2019-02-23] MEDS ORDERED: MORPHINE 4 MG/ML SYR ONE (19:09)
[2019-02-23] MEDS ORDERED: ONDANSETRON 4 MG/2 ML VIAL ONE (19:09)
[2019-02-23] MEDS ORDERED: PROMETHAZINE 25 MG/ML VIAL ONE ×2 (19:13→21:13)
[2019-02-23] MEDS ORDERED: NA CHLORIDE 0.9% 1,000 ML ONE (19:23)
[2019-02-23] MEDS ORDERED: MORPHINE 2 MG/ML SYR ONE ×2 (20:11→21:13)
[2019-02-23 20:12] LABS: Urine Bacteria >50 /HPF (<20); Urine Culture Reflex Order NOT NEEDED; Urine RBC >50 /HPF (NONE SEEN)
--- NOTE | 2019-02-23 20:39 | RAD REPORT ---
EXAM DESCRIPTION: CT - Stone Protocol - 02/23/2019 8:14 pm CLINICAL HISTORY: Abdominal pain. Left flank pain COMPARISON: None. TECHNIQUE: Computed axial tomography of the abdomen pelvis was obtained without oral or IV contrast. Lack of IV and oral contrast limits evaluation of solid organs, bowel, and vessels. Coronal reformat gomez images were obtained and reviewed. All CT scans are performed using dose optimization technique as appropriate and may include automated exposure control or mA/KV adjustment according to patient size. FINDINGS: A renal calculus is not seen. An ureteral calculus is not noted. A bladder calculus is not present. Mild left hydronephrosis. Mild stranding within the left perirenal and proximal left ureter al fat. The liver, spleen, pancreas and adrenals appear grossly normal There is no evidence of diverticulitis. An adnexal mass is not noted IMPRESSION: Mild left hydronephrosis with stranding in the left perirenal and proximal ureteral fat may be secondary to infection. Recently passed genitourinary calculus is another consideration
[2019-02-23] MEDS ORDERED: CEFTRIAXONE/SWI 1gm 1 GM/10 ML SYR ONE (20:59)
--- NOTE | 2019-02-23 21:01 | EDPHYS ---
Physician Documentation [facility] Name: Yue Foy Age: 28 yrs Sex: Female : 1990 Arrival Date: 02/23/2019 Time: 17:47 Bed 30 Private MD: ED Physician Joseph Spencer HPI: 02/23 20:32 This 28 yrs old Female presents to ER via Ambulatory with complaints of snw Possible Kidney Stone. 20:32 Onset: The symptoms/episode began/occurred gradually, 4 day(s) ago, and became worse snw today. Associated signs and symptoms: Pertinent positives: left flank pain and nausea. Modifying factors: The patient symptoms are alleviated by nothing. The patient has experienced similar episodes in the past. It is unknown whether or not the patient has recently seen a physician. CLINICAL PROGRAM MANAGER: 20:26 lmp unknown mg2 Historical: - Allergies: 18:08 Sulfa (Sulfonamide Antibiotics); sv - Home Meds: 20:27 Klonopin Oral [Active]; lamotrigine Oral [Active]; Lexapro Oral [Active]; mg2 - PMHx: 18:08 Diverticulitis; Endometrosis; Seizures; Kidney stones; sv - PSHx: 18:08 Appendectomy; sv - Immunization history:: Flu vaccine status is unknown. - Social history:: Smoking status: unknown. - Ebola Screening: : No symptoms or risks identified at this time. ROS: 20:32 Constitutional: Negative for fever, chills, and weight loss, Eyes: Negative for injury, snw pain, redness, and discharge, ENT: Negative for injury, pain, and discharge, Neck: Negative for injury, pain, and swelling, Cardiovascular: Negative for chest pain, palpitations, and edema, Respiratory: Negative for shortness of breath, cough, wheezing, and pleuritic chest pain, Abdomen/GI: Negative for abdominal pain, nausea, vomiting, diarrhea, and constipation. 20:32 Back: Negative for injury and pain, MS/Extremity: Negative for injury and deformity, Skin: Negative for injury, rash, and discoloration, Neuro: Negative for headache, weakness, numbness, tingling, and seizure. 20:32 : Positive for urinary symptoms, flank pain, hematuria. Exam: 20:26 Head/Face: Normocephalic, atraumatic. snw 20:26 Eyes: Pupils equal round and reactive to light, extra-ocular motions intact. Lids and lashes normal. Conjunctiva and sclera are non-icteric and not injected. Cornea within normal limits. Periorbital areas with no swelling, redness, or edema. ENT: Nares patent. No nasal discharge, no septal abnormalities noted. Tympanic membranes are normal and external auditory canals are clear. Oropharynx with no redness, swelling, or masses, exudates, or evidence of obstruction, uvula midline. Mucous membranes moist. Neck: Trachea midline, no thyromegaly or masses palpated, and no cervical lymphadenopathy. Supple, full range of motion without nuchal rigidity, or vertebral point tenderness. No Meningismus. Chest/axilla: Normal chest wall appearance and motion. Nontender with no deformity. No lesions are appreciated. 20:26 Respiratory: Lungs have equal breath sounds bilaterally, clear to auscultation and percussion. No rales, rhonchi or wheezes noted. No increased work of breathing, no retractions or nasal flaring. Abdomen/GI: Soft, non-tender, with normal bowel sounds. No distension or tympany. No guarding or rebound. No evidence of tenderness throughout. 20:26 Skin: Warm, dry with normal turgor. Normal color with no rashes, no lesions, and no evidence of cellulitis. MS/ Extremity: Pulses equal, no cyanosis. Neurovascular intact. Full, normal range of motion. Neuro: Awake and alert, GCS 15, oriented to person, place, time, and situation. Cranial nerves II-XII grossly intact. Motor strength 5/5 in all extremities. Sensory grossly intact. Cerebellar exam normal. Normal gait. Psych: Awake, alert, with orientation to person, place and time. Behavior, mood, and affect are within normal limits, tearful, anxious 20:26 Constitutional: The patient appears awake, anxious, restless, uncomfortable. 20:26 Cardiovascular: Rate: tachycardic, Rhythm: regular. 20:26 Back: CVA tenderness, that is mild, is noted on the left. Vital Signs: 18:08 BP 140 / 81; Pulse 103; Resp 20; Temp 100.1; Pulse Ox 100% ; Pain 8/10; sv 21:10 BP 143 / 90; Pulse 90; Resp 18; Pulse Ox 100% on R/A; Pain 3/10; mg2 MDM: 18:55 Patient medically screened. snw 21:03 Data reviewed: vital signs, nurses notes. Data interpreted: Pulse oximetry: on room air snw is 100 %. Interpretation: normal. Counseling: I had a detailed discussion with the patient and/or guardian regarding: the historical points, exam findings, and any diagnostic results supporting the discharge/admit diagnosis, the presence of at least one elevated blood pressure reading (>120/80) during this emergency department visit, lab results, radiology results, the need for outpatient follow up, to return to the emergency department if symptoms worsen or persist or if there are any questions or concerns that arise at home. Response to treatment: the patient's symptoms have markedly improved after treatment. 21:04 Special discussion: I have referred the patient to see his PCP for further evaluation snw of high blood pressure. Based on the history and exam findings, there is no indication for further emergent testing or inpatient evaluation. I discussed with the patient/guardian the need to see the primary care provider for further evaluation of the symptoms. I discussed with the patient/guardian the need to see the urologist for further evaluation of the symptoms. 02/23 18:30 Order name: Basic Metabolic Panel; Complete Time: 19:17 [facility] [place] 02/23 18:30 Order name: CBC with Diff; Complete Time: 19:17 [facility] [place] 02/23 18:30 Order name: Creatinine for Radiology; Complete Time: 19:17 mg2 02/23 18:30 Order name: Hepatic Function; Complete Time: 19:17 [facility] [place] 02/23 18:30 Order name: Lipase; Complete Time: 19:17 [facility] [place] 02/23 18:56 Order name: Urine Culture snw 02/23 18:53 Order name: CT Stone Protocol; Complete Time: 20:40 snw 02/23 18:56 Order name: Urine Microscopic Only; Complete Time: 20:25 snw 02/23 19:47 Order name: Urine Dipstick--Ancillary (enter results) 6 02/23 19:47 Order name: Urine --Ancillary (enter results) 6 02/23 19:48 Order name: Urine --Ancillary EDAL 02/23 18:30 Order name: IV Saline Lock; Complete Time: 18:43 mg2 02/23 18:30 Order name: Labs collected and sent; Complete Time: 18:43 [facility] [place] 02/23 18:56 Order name: Urine Test (obtain specimen); Complete Time: 19:45 snw 02/23 18:56 Order name: Urine Dipstick-Ancillary (obtain specimen); Complete Time: 19:45 snw Administered Medications: 19:07 Drug: morphine 4 mg Route: IM; Site: right gluteus; mg2 20:44 Follow up: Response: No adverse reaction; Marked relief of symptoms mg2 19:07 Drug: Phenergan 12.5 mg Route: IVP; Site: left antecubital; mg2 20:43 Follow up: Response: No adverse reaction; Marked relief of symptoms mg2 19:07 Drug: NS 0.9% 1000 ml Route: IV; Rate: 1 bolus; Site: left antecubital; mg2 20:44 Follow up: Response: No adverse reaction; IV Status: Completed infusion mg2 20:06 Drug: morphine 2 mg Route: IVP; Site: left antecubital; mg2 20:44 Follow up: Response: No adverse reaction; Marked relief of symptoms mg2 20:53 Drug: Rocephin 1 grams Route: IV; Rate: calculated rate; Site: left antecubital; mg2 21:10 Follow up: Response: No adverse reaction; IV Status: Completed infusion mg2 21:08 Drug: morphine 2 mg Route: IM; Site: right gluteus; mg2 21:09 Follow up: Response: No adverse reaction; Medication administered at discharge. mg2 21:08 Drug: TORadol 30 mg Route: IVP; Site: left antecubital; mg2 21:09 Follow up: Response: No adverse reaction; Medication administered at discharge. mg2 21:09 Drug: Phenergan 12.5 mg Route: IVP; Site: left antecubital; mg2 21:10 Follow up: Response: No adverse reaction; Medication administered at discharge. mg2 Disposition: 02/23/19 21:00 Discharged to Home. Impression: Unspecified pyelonephritis. - Condition is Stable. - Discharge Instructions: Flank Pain, Adult, Kidney Stones, Pyelonephritis, Adult, Dietary Guidelines to Help Prevent Kidney Stones. - Prescriptions for Macrobid 100 mg Oral Capsule - take 1 capsule by ORAL route every 12 hours for 10 days; 20 capsule. Doxycycline Hyclate 100 mg Oral Tablet - take 1 tablet by ORAL route every 12 hours; 20 tablet. Diclofenac Sodium 75 mg Oral Tablet Sustained Release - take 1 tablet by ORAL route 2 times per day; 30 tablet. promethazine 25 mg Oral Tablet - take 1 tablet by ORAL route every 6 hours As needed; 20 tablet. - Work release form, Medication Reconciliation Form, Thank You Letter, Antibiotic Education, Prescription Opioid Use form. - Follow up: Emergency Department; When: As needed; Reason: Worsening of condition. Follow up: Private Physician; When: 1 - 2 days; Reason: Recheck today's complaints, Continuance of care, Re-evaluation by your physician. Addendum: 02/25/2019 19:46 Co-signature as Attending Physician, Joseph Spencer MD. r n Signatures: Dispatcher [employer] EDMakayla Lee RN RN Devorah Burns, RESEARCH DEVELOPMENT MANAGER-C RESEARCH DEVELOPMENT MANAGER-Csnw Joseph Spencer MD MD rn Gardose, Michele, RN RN mg2 Corrections: (The following items were deleted from the chart) 02/23 21:16 21:00 02/23/2019 21:00 Discharged to Home. Impression: Unspecified pyelonephritis. mg2 Condition is Stable. Forms are Medication Reconciliation Form, Thank You Letter, Antibiotic Education, Prescription Opioid Use. Follow up: Emergency Department; When: As needed; Reason: Worsening of condition. Follow up: Private Physician; When: 1 - 2 days; Reason: Recheck today's complaints, Continuance of care, Re-evaluation by your physician. snw
--- NOTE | 2019-02-23 21:01 | ER ---
Nurse's Notes [facility] Name: Yue Foy Age: 28 yrs Sex: Female : 1990 Arrival Date: 02/23/2019 Time: 17:47 Bed 30 Private MD: Diagnosis: Unspecified pyelonephritis Presentation: 02/23 18:07 Presenting complaint: Patient states: left flank pain, hematuria started 4 days ago. Hx sv kidney stones. Transition of care: patient was not received from another setting of care. Onset of symptoms was February 19, 2019. Care prior to arrival: None. 18:07 Method Of Arrival: Ambulatory sv 18:07 Acuity: TARA 3 sv 20:26 Risk Assessment: Do you want to hurt yourself or someone else? Patient reports no mg2 desire to harm self or others. Initial Sepsis Screen: Does the patient meet any 2 criteria? No. Patient's initial sepsis screen is negative. Does the patient have a suspected source of infection? No. Patient's initial sepsis screen is negative. 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 - Social history:: Smoking status: unknown. - Ebola Screening: : No symptoms or risks identified at this time. Screenin:44 Abuse screen: Denies threats or abuse. Denies injuries from another. Nutritional mg2 screening: No deficits noted. Tuberculosis screening: No symptoms or risk factors identified. Fall Risk IV access (20 points). Assessment: 20:24 General: Appears uncomfortable, Behavior is crying. Pain: Complains of pain in both mg2 flank Pain does not radiate. Pain currently is 5 out of 10 on a pain scale. Quality of pain is described as aching, Pain began gradually, 1 day ago. Is intermittent, Alleviated by medications. Neuro: Level of Consciousness is awake, alert, obeys commands, Oriented to person, place, time, situation. Cardiovascular: Capillary refill < 3 seconds Patient's skin is warm and dry. Respiratory: Airway is patent Respiratory effort is even, unlabored, Respiratory pattern is regular, symmetrical. GI: Bowel sounds present X 4 quads. Abd is soft and non tender. : Reports pain in bilateral flank(s), since yesterday. EENT: No signs and/or symptoms were reported regarding the EENT system. Derm: Skin is intact, is healthy with good turgor, Skin is pink, warm \T\ dry. normal. Musculoskeletal: Circulation, motion, and sensation intact. Capillary refill < 3 seconds. 21:16 Reassessment: Patient appears in no apparent distress at this time. Patient states mg2 feeling better. Patient states symptoms have improved. Vital Signs: 18:08 BP 140 / 81; Pulse 103; Resp 20; Temp 100.1; Pulse Ox 100% ; Pain 8/10; sv 21:10 BP 143 / 90; Pulse 90; Resp 18; Pulse Ox 100% on R/A; Pain 3/10; mg2 ED Course: 17:47 Patient arrived in ED. tw3 18:08 Triage completed. sv 18:25 Benjamin Vee, RN is Primary Nurse. mg2 18:34 Devorah Navarro FNP-C is PHCP. snw 18:34 Joseph Spencer MD is Attending Physician. snw 18:43 No provider procedures requiring assistance completed. Inserted saline lock: 20 gauge mg2 in left antecubital area, using aseptic technique. Blood collected. 18:44 Patient has correct armband on for positive identification. mg2 18:57 Radiology exam delayed due to test not completed at this time. nj 19:30 Radiology exam delayed due to test not completed at this time. vm2 20:15 CT Stone Protocol In Process Unspecified. EDMS 20:27 Arm band placed on. mg2 21:11 IV discontinued, intact, bleeding controlled, No redness/swelling at site. Pressure mg2 dressing applied. Administered Medications: 19:07 Drug: morphine 4 mg Route: IM; Site: right gluteus; mg2 20:44 Follow up: Response: No adverse reaction; Marked relief of symptoms mg2 19:07 Drug: Phenergan 12.5 mg Route: IVP; Site: left antecubital; mg2 20:43 Follow up: Response: No adverse reaction; Marked relief of symptoms mg2 19:07 Drug: NS 0.9% 1000 ml Route: IV; Rate: 1 bolus; Site: left antecubital; mg2 20:44 Follow up: Response: No adverse reaction; IV Status: Completed infusion mg2 20:06 Drug: morphine 2 mg Route: IVP; Site: left antecubital; mg2 20:44 Follow up: Response: No adverse reaction; Marked relief of symptoms mg2 20:53 Drug: Rocephin 1 grams Route: IV; Rate: calculated rate; Site: left antecubital; mg2 21:10 Follow up: Response: No adverse reaction; IV Status: Completed infusion mg2 21:08 Drug: morphine 2 mg Route: IM; Site: right gluteus; mg2 21:09 Follow up: Response: No adverse reaction; Medication administered at discharge. mg2 21:08 Drug: TORadol 30 mg Route: IVP; Site: left antecubital; mg2 21:09 Follow up: Response: No adverse reaction; Medication administered at discharge. mg2 21:09 Drug: Phenergan 12.5 mg Route: IVP; Site: left antecubital; mg2 21:10 Follow up: Response: No adverse reaction; Medication administered at discharge. mg2 Outcome: 21:00 Discharge ordered by . snw 21:16 Discharged to home ambulatory, with family. mg2 21:16 Condition: stable 21:16 Discharge instructions given to patient, family, Instructed on discharge instructions, follow up and referral plans. medication usage, Demonstrated understanding of instructions, follow-up care, medications, Prescriptions given X 4. 21:16 Patient left the ED. mg2 Addendum: 02/26/2019 09:29 Addendum: Culture Results: Positive urine culture. No further action required. Bacteria s s sensitive to prescribed antibiotic. Signatures: Dispatcher [employer] Makayla Nava, RN RN Devorah Burns, MED SPA MANAGER-C MED SPA MANAGER-Csnw Kellie Sarmiento RN RN ss Jordan, Nathan nj Wade, Tia 3 Nica [place] Benjamin Vee RN RN mg2
[2019-02-23] MEDS ORDERED: KETOROLAC 30 MG/ML INJ ONE (21:13)
[2019-02-24 00:10] LABS: Urine Blood 3+ (NEG); Urine Glucose NEGATIVE (NEG); Urine Protein 3+ (NEG); Urine Specific Gravity 1.015 (1.005-1.030)
== END 2019-02-23 21:16 | disposition home or self-care (01) ==
LOC: ER 17:44
DX: N12 Tubulo-interstitial nephritis, not specified as acute or chronic (principal); Z88.2 Allergy status to sulfonamides
CPT/HCPCS: 36415; 74176; 76377; 80048; 80076; 81003; 81015; 81025; 83690; 85025; 87077; 87086; 87088; 87186; 96361; 96365; 96372; 96375; 99284; J0696; J2270; J2405; J2550; J7030